=== PATIENT | male | born 1935 ===

== ENCOUNTER 2017-03-31 10:59 | Observation (INO) | payer OTHER ==
[2017-03-31 11:17] VITALS: BP 151/86; PULSE 76; RESP 20; TEMP 98; O2SAT 97
[2017-03-31] MEDS ORDERED: Sodium Chloride 0.9% 1,000 ML IV STA (11:43)
--- NOTE | 2017-03-31 11:55 | ED PDOC ---
HPI: Back Time Seen by Provider: 03/31/17 11:36 Chief Complaint (Nursing): Back Pain Chief Complaint (Provider): Back Pain History Per: Patient History/Exam Limitations: no limitations Onset/Duration Of Symptoms: Days (x 8) Current Symptoms Are (Timing): Still Present Additional Complaint(s): Arnold is an 81 y/o male who presents to the ED complaining of bilateral low back pain, ongoing for 8 days. Denies trauma and heavy lifting. Patient states he was diagnosed with 2 kidney stones two weeks ago while in the [facility] [place], one removed and one was to pass on its own. He is on Flomax. Also has mild dysuria. Denies any associated hematuria, abdominal pain, or fever. PMD: Unknown Past Medical History Reviewed: Historical Data, Nursing Documentation, Vital Signs Vital Signs: Last Vital Signs Temp 98.0 F 03/31/17 11:14 Pulse 76 03/31/17 11:14 Resp 20 03/31/17 11:14 BP 151/86 H 03/31/17 11:14 Pulse Ox 97 03/31/17 11:14 - Medical History PMH: Anemia, Kidney Stones (2 weeks ago), Chronic Kidney Disease - Surgical History Other surgeries: Kidney stone removal - Family History Family History: States: Unknown Family Hx - Social History Current smoker - smoking cessation education provided: No Alcohol: None Drugs: Denies - Home Medications Home Medications: Ambulatory Orders Medication Instructions Recorded Acetaminophen with Codeine 1 tab PO Q6H PRN #10 tab 03/31/17 [Tylenol with Codeine No. 3 300 mg-30 mg] Nitrofurantoin Macrocrystals 100 mg PO BID #14 cap 03/31/17 [Macrobid] Phenazopyridine [Pyridium] 200 mg PO TID #6 tab 03/31/17 - Allergies Allergies/Adverse Reactions: Allergies Allergy/AdvReac Type Severity Reaction Status Date / Time No Known Allergies Allergy Verified 03/31/17 11:13 Review of Systems ROS Statement: Except As Marked, All Systems Reviewed And Found Negative Constitutional: Negative for: Fever Gastrointestinal: Negative for: Abdominal Pain Genitourinary Male: Positive for: Dysuria (mild). Negative for: Hematuria Musculoskeletal: Positive for: Back Pain (bilateral low back pain) Physical Exam - Reviewed Nursing Documentation Reviewed: Yes Vital Signs Reviewed: Yes - Physical Exam Appears: Positive for: Non-toxic, No Acute Distress Head Exam: Positive for: ATRAUMATIC, NORMAL INSPECTION, NORMOCEPHALIC Skin: Positive for: Normal Color, Warm, Dry Eye Exam: Positive for: EOMI, Normal appearance, PERRL Neck: Positive for: Normal, Painless ROM, Supple Cardiovascular/Chest: Positive for: Regular Rate, Rhythm. Negative for: Murmur Respiratory: Positive for: Normal Breath Sounds. Negative for: Respiratory Distress Gastrointestinal/Abdominal: Positive for: Normal Exam, Soft. Negative for: Tenderness Back: Positive for: Other (bilateral low back tenderness) Extremity: Positive for: Normal ROM, Capillary Refill (< 2 sec). Negative for: Pedal Edema, Deformity Neurologic/Psych: Positive for: Alert, Oriented - Laboratory Results Result Diagrams: 03/31/17 12:00 03/31/17 12:00 - ECG O2 Sat by Pulse Oximetry: 97 (RA) Pulse Ox Interpretation: Normal Medical Decision Making Medical Decision Making: Time: 11:43 Initial Impression: Low back pain, kidney stones Initial Plan: --Labs --NS IV 1000 ml at 125 mls/hr --Morphine 2 mg IV --Pending CT Abdomen/Pelvis Time: 14:02 CT Abdomen/Pelvis: FINDINGS: LOWER THORAX: Mild bibasilar atelectasis or scarring. . Heart size is upper limits of normal/ borderline enlarged. No significant pericardial effusion. Cardiac chambers exhibit low attenuation suggesting mild underlying anemia. LIVER: Liver exhibits normal size measuring approximately 14.5 cm in CC dimension. No obvious hepatic mass collection or calcification. GALLBLADDER AND BILE DUCTS: Gallbladder is physiologically distended. No evidence of intraluminal gallbladder calculi. PANCREAS: Evaluation of the pancreas is limited due to the lack of circulating intravenous contrast as well as adjacent non-opacified bowel. Pancreatic duct is barely visible although does not appear significantly dilated. No obvious large pancreatic mass or collection. SPLEEN: The spleen exhibits normal size and attenuation pattern without mass collection or calcification. ADRENALS: No adrenal lesions. KIDNEYS AND URETERS: The urinary bladder is physiologically Kidneys demonstrate relatively symmetric size. Multiple tiny calculi seen scattered throughout both kidneys, the largest of which is located in the upper/midpole right kidney measuring 3.3 mm. No evidence of obstructive hydronephrosis. Probable parapelvic left renal cyst. BLADDER: Urinary bladder is incompletely distended which may in part account for thick- walled appearance. Muscular hypertrophy presumably contributes. Possibility of cystitis or other intrinsic/invasive wall lesion not excluded. REPRODUCTIVE: Prostate gland measures approximately 3.5 cm in transverse dimension. Prostatic calcifications are present. There is a moderate-sized scrotal hydrocele present. APPENDIX: The appendix is not seen with complete certainty however what appears to represent normal appendix is best visualized on axial image number 54. No periappendiceal inflammatory changes. BOWEL: Evaluation of the bowel is limited due to the lack of oral contrast material. This there is a tiny hiatal hernia. The stomach is incompletely distended with food debris liquid and air. Incomplete distension presumably accounts for thick -walled appearance. The possibility of gastritis not excluded. Multiple of fluid filled mildly distended loops of small bowel are present with a small right inguinal hernia that contains a knuckle of small bowel. Rule out early complete small-bowel obstruction versus partial/intermittent small bowel obstruction. Stool and air seen throughout the colon. There may also be a few scattered colonic diverticula along the sigmoid and distal descending colon. No obvious radiographic evidence of acute diverticulitis however evaluation for diverticulitis is somewhat limited due to the paucity of intraperitoneal and retroperitoneal fat. PERITONEUM: Unremarkable. No fluid collection. No free air. LYMPH NODES: Evaluation for adenopathy is limited due to the lack of oral and intravenous contrast material as well as paucity of intraperitoneal and retroperitoneal fat. VASCULATURE: Atherosclerotic plaque changes seen along abdominal aorta and iliac arteries. No evidence of abdominal aortic aneurysm. BONES: Multilevel degenerative spondylosis of the lumbar and to a lesser degree lower thoracic spine. OTHER FINDINGS: None. IMPRESSION: Limited study as described. There is a right inguinal hernia that contains a knuckle of distal small bowel. The on the proximal small bowel is mildly distended with fluid. Rule out early complete versus partial and or intermittent small bowel obstruction. Bilateral nonobstructing renal calculi. Probable parapelvic cyst left kidney. Wall thickening of the urinary bladder likely due to incomplete distention and muscular hypertrophy. Cystitis or other intrinsic/invasive wall lesion not excluded. . There is a moderate size scrotal hydrocele. Findings also consistent with anemia as detailed above See above discussion for additional details and findings. --Patient admitted to ED-OBS as of 14:00 Scribe Attestation: Documented by Lida Xiong, acting as a scribe for Tatiana Grey MD Provider Scribe Attestation: All medical record entries made by the Scribe were at my direction and personally dictated by me. I have reviewed the chart and agree that the record accurately reflects my personal performance of the history, physical exam, medical decision making, and the department course for this patient. I have also personally directed, reviewed, and agree with the discharge instructions and disposition. ED OBSERVATION Date of observation admission: 03/31/17 Time of observation admission: 14:00 - Observation admission statement Patient is being placed in observation because:: Back pain - Progress Note Progress Note: 03/31/17 Time: 14:00 --Patient is resting comfortably. Vital signs stable. Time: 14:04 --Patient given Rocephin, 1 gm in NS IV Time: 15:30 --Patient is resting comfortably. Vital signs stable. Time: 16:15 --Paged fixed income trading vice president for consult --Patient given Rocephin 1 gm IV Time: 17:00 --Patient is resting comfortably. Vital signs stable. Disposition - Clinical Impression Clinical Impression: UTI (urinary tract infection), Back pain, Inguinal hernia - Disposition Disposition: Routine/Home Disposition Time: 18:00 Condition: STABLE
[2017-03-31 12:11] LABS: BASO # 0.1 K/uL (0.0-0.2); BASO % 1.2 % (0.0-2.0); EOS % 0.5 % (0.0-4.0); HEMATOCRIT 26.7 % (35.0-51.0); LYMPH # 1.2 K/uL (1.0-4.3); LYMPH % 14.3 % (20.0-40.0); MEAN CELL VOLUME 110.7 fl (80.0-94.0); MEAN CORPUSCULAR HEMOGLOBIN 35.5 pg (27.0-31.0); MEAN CORPUSCULAR HGB CONC 32.1 g/dL (33.0-37.0); MEAN PLATELET VOLUME 6.8 fl (7.2-11.7); MONO # 0.8 K/uL (0.0-0.8); MONO % 9.7 % (0.0-10.0); NEUT # 6.5 K/uL (1.8-7.0); NEUT % 74.3 % (50.0-75.0); NRBC % 0.1 % (0.0-0.0); RED CELL DISTRIBUTION WIDTH 19.8 % (11.5-14.5); WHITE BLOOD COUNT 8.7 K/uL (4.8-10.8)
[2017-03-31 12:21] LABS: ALB/GLOB RATIO 0.7 (1.0-2.1); ALKALINE PHOSPHATASE 222 U/L (38-126); ALT/SGPT 42 U/L (21-72); AST/SGOT 33 U/L (17-59); BILIRUBIN,TOTAL 0.6 mg/dl (0.2-1.3); BLOOD UREA NITROGEN 20 mg/dl (9-20); CALCIUM 8.1 mg/dL (8.4-10.2); CARBON DIOXIDE 24 mmol/L (22-30); CHLORIDE 109 mmol/L (98-107); GFR AFRICAN-AMERICAN > 60; GLUCOSE,RANDOM 123 mg/dL (75-110); SODIUM 139 mmol/l (132-148); TOTAL PROTEIN 6.5 G/DL (6.3-8.2)
[2017-03-31 12:28] LABS: POTASSIUM 5.3 MMOL/L (3.6-5.0)
[2017-03-31 12:29] LABS: PARTIAL THROMBOPLASTIN TIME 32.8 Seconds (25.6-37.1)
[2017-03-31 12:58] LABS: RBC URINE 3 /hpf (0-3); URINE BACTERIA RARE (<OCC); URINE BILIRUBIN NEGATIVE (NEGATIVE); URINE BLOOD NEGATIVE (NEGATIVE); URINE COLOR YELLOW (YELLOW); URINE GLUCOSE (UA) NEG (Normal); URINE KETONE NEGATIVE (NEGATIVE); URINE LEUKOCYTE ESTERASE TRACE Leu/uL (Negative); URINE PROTEIN NEGATIVE (NEGATIVE); URINE UROBILINOGEN 0.2-1.0 mg/dL (0.2-1.0); WBC URINE 7 /hpf (0-5)
--- NOTE | 2017-03-31 14:04 | CT ---
PROCEDURE: CT abdomen pelvis dated 03/31/2017 HISTORY: Bilateral low back pain, h/o renal stones COMPARISON: None. TECHNIQUE: Contiguous axial images of the abdomen and pelvis performed without oral or intravenous. coronal and Sagittal reformats generated. Radiation dose: Total exam DLP = 333.98 mGy-cm. This CT exam was performed using one or more of the following dose reduction techniques: Automated exposure control, adjustment of the mA and/or kV according to patient size, and/or use of iterative reconstruction technique. FINDINGS: LOWER THORAX: Mild bibasilar atelectasis or scarring. . Heart size is upper limits of normal/borderline enlarged. No significant pericardial effusion. Cardiac chambers exhibit low attenuation suggesting mild underlying anemia. LIVER: Liver exhibits normal size measuring approximately 14.5 cm in CC dimension. No obvious hepatic mass collection or calcification. GALLBLADDER AND BILE DUCTS: Gallbladder is physiologically distended. No evidence of intraluminal gallbladder calculi. PANCREAS: Evaluation of the pancreas is limited due to the lack of circulating intravenous contrast as well as adjacent non-opacified bowel. Pancreatic duct is barely visible although does not appear significantly dilated. No obvious large pancreatic mass or collection. SPLEEN: The spleen exhibits normal size and attenuation pattern without mass collection or calcification. ADRENALS: No adrenal lesions. KIDNEYS AND URETERS: The urinary bladder is physiologically Kidneys demonstrate relatively symmetric size. Multiple tiny calculi seen scattered throughout both kidneys, the largest of which is located in the upper/midpole right kidney measuring 3.3 mm. No evidence of obstructive hydronephrosis. Probable parapelvic left renal cyst. BLADDER: Urinary bladder is incompletely distended which may in part account for thick-walled appearance. Muscular hypertrophy presumably contributes. Possibility of cystitis or other intrinsic/invasive wall lesion not excluded. REPRODUCTIVE: Prostate gland measures approximately 3.5 cm in transverse dimension. Prostatic calcifications are present. There is a moderate-sized scrotal hydrocele present. APPENDIX: The appendix is not seen with complete certainty however what appears to represent normal appendix is best visualized on axial image number 54. No periappendiceal inflammatory changes. BOWEL: Evaluation of the bowel is limited due to the lack of oral contrast material. This there is a tiny hiatal hernia. The stomach is incompletely distended with food debris liquid and air. Incomplete distension presumably accounts for thick-walled appearance. The possibility of gastritis not excluded. Multiple of fluid filled mildly distended loops of small bowel are present with a small right inguinal hernia that contains a knuckle of small bowel. Rule out early complete small-bowel obstruction versus partial/intermittent small bowel obstruction. Stool and air seen throughout the colon. There may also be a few scattered colonic diverticula along the sigmoid and distal descending colon. No obvious radiographic evidence of acute diverticulitis however evaluation for diverticulitis is somewhat limited due to the paucity of intraperitoneal and retroperitoneal fat. PERITONEUM: Unremarkable. No fluid collection. No free air. LYMPH NODES: Evaluation for adenopathy is limited due to the lack of oral and intravenous contrast material as well as paucity of intraperitoneal and retroperitoneal fat. VASCULATURE: Atherosclerotic plaque changes seen along abdominal aorta and iliac arteries. No evidence of abdominal aortic aneurysm. BONES: Multilevel degenerative spondylosis of the lumbar and to a lesser degree lower thoracic spine. OTHER FINDINGS: None. IMPRESSION: Limited study as described. There is a right inguinal hernia that contains a knuckle of distal small bowel. The on the proximal small bowel is mildly distended with fluid. Rule out early complete versus partial and or intermittent small bowel obstruction. Bilateral nonobstructing renal calculi. Probable parapelvic cyst left kidney. Wall thickening of the urinary bladder likely due to incomplete distention and muscular hypertrophy. Cystitis or other intrinsic/invasive wall lesion not excluded. . There is a moderate size scrotal hydrocele. Findings also consistent with anemia as detailed above See above discussion for additional details and findings.
[2017-03-31] MEDS ORDERED: cefTRIAXone (Rocephin) 1 gm Inj ONE (14:11)
== END 2017-03-31 18:02 | disposition home or self-care (01) ==
LOC: H.ER 10:59 → H.EROBSV 17:06
PROVIDERS: ADMIT Emergency Medicine; ATTEND Emergency Medicine
DX: N39.0 Urinary tract infection, site not specified (principal); M54.5 Low back pain; K40.90 Unilateral inguinal hernia, without obstruction or gangrene, not specified as recurrent; N18.9 Chronic kidney disease, unspecified; Z87.442 Personal history of urinary calculi; D64.9 Anemia, unspecified
CPT/HCPCS: 74176; 80053; 81003; 85025; 85610; 85730; 96372; 99282; G0378; J0696; J1885; J2270; J7040

== ENCOUNTER 2017-04-03 18:25 | Observation (INO) | payer SELFPAY ==
[2017-04-03] MEDS ORDERED: Iohexol 240 (50 ml) PO ONE (19:02)
[2017-04-03 19:20] LABS: BASO # 0.1 K/uL (0.0-0.2); EOS # 0.1 K/uL (0.0-0.7); EOS % 0.8 % (0.0-4.0); HEMATOCRIT 26.5 % (35.0-51.0); LYMPH # 1.3 K/uL (1.0-4.3); LYMPH % 14.1 % (20.0-40.0); MEAN CELL VOLUME 105.9 fl (80.0-94.0); MEAN CORPUSCULAR HEMOGLOBIN 33.9 pg (27.0-31.0); MEAN PLATELET VOLUME 6.4 fl (7.2-11.7); MONO % 10.7 % (0.0-10.0); NEUT # 6.5 K/uL (1.8-7.0); NEUT % 73.4 % (50.0-75.0); NRBC % 0.1 % (0.0-0.0); RED CELL DISTRIBUTION WIDTH 22.1 % (11.5-14.5); WHITE BLOOD COUNT 8.9 K/uL (4.8-10.8)
[2017-04-03] MEDS ORDERED: Iohexol 240 (50 ml) ONE (19:20)
[2017-04-03 19:27] LABS: RBC URINE 3 /hpf (0-3); URINE BACTERIA RARE (<OCC); URINE BILIRUBIN NEGATIVE (NEGATIVE); URINE BLOOD NEGATIVE (NEGATIVE); URINE COLOR AMBER (YELLOW); URINE GLUCOSE (UA) NEG (Normal); URINE KETONE NEGATIVE (NEGATIVE); URINE LEUKOCYTE ESTERASE NEG Leu/uL (Negative); URINE PROTEIN NEGATIVE (NEGATIVE); WBC URINE 10 /hpf (0-5)
[2017-04-03 19:32] LABS: ALB/GLOB RATIO 0.7 (1.0-2.1); ALKALINE PHOSPHATASE 206 U/L (38-126); ALT/SGPT 40 U/L (21-72); AST/SGOT 22 U/L (17-59); BILIRUBIN,TOTAL 0.4 mg/dl (0.2-1.3); BLOOD UREA NITROGEN 14 mg/dl (9-20); CALCIUM 8.5 mg/dL (8.4-10.2); CARBON DIOXIDE 25 mmol/L (22-30); CHLORIDE 103 mmol/L (98-107); GFR AFRICAN-AMERICAN > 60; GLUCOSE,RANDOM 118 mg/dL (75-110); LIPASE 49 U/L (23-300); MAGNESIUM 1.9 MG/DL (1.6-2.3); PHOSPHOROUS 3.7 mg/dl (2.5-4.5); POTASSIUM 4.2 MMOL/L (3.6-5.0); SODIUM 134 mmol/l (132-148); TOTAL PROTEIN 6.5 G/DL (6.3-8.2)
[2017-04-03] MEDS ORDERED: cefTRIAXone (Rocephin) 1 gm Inj ONE (19:39)
--- NOTE | 2017-04-03 19:46 | ED PDOC ---
HPI: Back Time Seen by Provider: 04/03/17 18:39 Chief Complaint (Nursing): Male Genitourinary Chief Complaint (Provider): Flank pain History Per: Patient History/Exam Limitations: no limitations Onset/Duration Of Symptoms: Days (x 2 weeks) Current Symptoms Are (Timing): Still Present Additional History Per: Prior Records Additional Complaint(s): Arnold is an 81 y/o male with a past medical history of kidney stones and anemia, who presents to ED complaining of flank pain for the past 2 weeks, worsening since onset. He recently had renal calculi and underwent a procedure to remove them in the [place]. Seen here on 03/31/17, and had CT which showed a right inguinal hernia. Patient was diagnosed with urine infection , prescribed pain meds and antibiotics. Now returns complaining of persistent pain, subjective chills and fever, decreased appetite, lower abdominal pain, and dysuria. Denies urinary frequency and vomiting. PMD: Unknown Past Medical History Reviewed: Historical Data, Nursing Documentation, Vital Signs Vital Signs: Last Vital Signs Temp 99.0 F 04/03/17 18:35 Pulse 74 04/03/17 18:35 Resp 20 04/03/17 18:35 BP 143/71 04/03/17 18:35 Pulse Ox 99 04/03/17 18:35 - Medical History PMH: Anemia, Kidney Stones (2 weeks ago), Chronic Kidney Disease - Surgical History Surgical History: No Surg Hx - Family History Family History: States: Unknown Family Hx - Social History Current smoker - smoking cessation education provided: No Alcohol: None Drugs: Denies - Home Medications Home Medications: Ambulatory Orders Medication Instructions Recorded Acetaminophen with Codeine 1 tab PO Q6H PRN #10 tab 03/31/17 [Tylenol with Codeine No. 3 300 mg-30 mg] Nitrofurantoin Macrocrystals 100 mg PO BID #14 cap 03/31/17 [Macrobid] Phenazopyridine [Pyridium] 200 mg PO TID #6 tab 03/31/17 - Allergies Allergies/Adverse Reactions: Allergies Allergy/AdvReac Type Severity Reaction Status Date / Time No Known Allergies Allergy Verified 03/31/17 11:13 Review of Systems ROS Statement: Except As Marked, All Systems Reviewed And Found Negative (as per HPI) Constitutional: Positive for: Fever, Chills Gastrointestinal: Positive for: Abdominal Pain (Lower), Other (Decreased appetite). Negative for: Vomiting Genitourinary Male: Positive for: Dysuria. Negative for: Frequency Musculoskeletal: Positive for: Back Pain (Flank pain), Leg Pain (right leg swelling) Physical Exam - Reviewed Nursing Documentation Reviewed: Yes Vital Signs Reviewed: Yes - Physical Exam Appears: Positive for: Non-toxic, In Acute Distress (painful distress, cachectic appearing) Head Exam: Positive for: ATRAUMATIC, NORMOCEPHALIC Skin: Positive for: Warm, Dry Eye Exam: Positive for: EOMI, PERRL ENT: Positive for: Other (tacky mucus membranes) Neck: Positive for: Painless ROM, Supple Cardiovascular/Chest: Positive for: Regular Rate, Rhythm, Chest Non Tender. Negative for: Murmur Respiratory: Positive for: Normal Breath Sounds. Negative for: Wheezing, Respiratory Distress Gastrointestinal/Abdominal: Positive for: Soft, Tenderness (lower abdominal ttp , paul R inguinal area with palpable reducible hernia) Back: Positive for: L CVA Tenderness, R CVA Tenderness. Negative for: Vertebral Tenderness Extremity: Positive for: Normal ROM, Pedal Edema (RIGHT lower foot and ankle). Negative for: Calf Tenderness Lymphatic: Positive for: Adenopathy Neurologic/Psych: Positive for: Alert. Negative for: Motor/Sensory Deficits - Laboratory Results Result Diagrams: 04/04/17 06:25 04/03/17 19:15 - ECG O2 Sat by Pulse Oximetry: 99 (RA) Pulse Ox Interpretation: Normal Medical Decision Making Medical Decision Making: Initial Impression: Flank pain, Abdominal pain Differential includes renal calculus, pyelonephritis, small bowel obstruction, dehydration, UTI Time: 19:02 Initial Plan: --Labs --Iohexol 50 ml PO --Morphine 2 mg IV --Toradol 15 mg IV --Rocephin 1 gm IV --CT Abdomen/Pelvis PO IV contrast --US Duplex Right lower extremity EXAM: CT Abdomen and Pelvis With Intravenous Contrast CLINICAL HISTORY: 81 years old, male; Pain; Other: Back; Additional info: Back and abdominal pain possible sbo TECHNIQUE: Axial computed tomography images of the abdomen and pelvis with intravenous contrast. All CT scans at this facility use one or more dose reduction techniques, viz.: automated exposure control; ma/kV adjustment per patient size (including targeted exams where dose is matched to indication; i.e. head); or iterative reconstruction technique. Coronal and sagittal reformatted images were created and reviewed. CONTRAST: 95 mL of omnipaque administered intravenously. COMPARISON: No relevant prior studies available. examination is limited by the lack of intraperitoneal and retroperitoneal fat. FINDINGS: Lower thorax: Bibasilar atelectasis. Subpleural cyst formation. The heart is enlarged. A small hiatal hernia is present. ABDOMEN: Liver: The liver is enlarged, but otherwise unremarkable. Gallbladder and bile ducts: The gallbladder is significantly distended, without calcified stones. The gallbladder is filled with low density contents, without wall thickening, pericholecystic fluid or adjacent fat stranding, suggesting gallbladder hydrops. No significant intra- or extrahepatic biliary ductal dilation. Pancreas: Enhances homogeneously. No ductal dilation. No discrete mass. Spleen: No acute findings. Adrenals: No acute findings. Kidneys and ureters: No acute findings. No hydronephrosis or renal calculi. No discrete solid mass. Multiple rounded areas of decreased attenuation, statistically representing cysts. PELVIS: Bladder: The bladder is moderately distended. Reproductive: No acute findings. Appendix: The appendix is not visualized. ABDOMEN and PELVIS: Stomach and bowel: Oral contrast extends to the mid to distal small bowel, without obstruction. Mural thickening is identified within multiple loops of distal small bowel, without surrounding inflammation or fluid to confirm an acute enteritis. A single loop of air-filled small bowel is detected within a right inguinal hernia, without distal decompression. Peritoneum: As above. Lymph nodes: Limited visualization secondary to the lack of intra-abdominal fat. Vasculature: Calcified atherosclerotic disease. Bones: Diffuse bony demineralization with significant degenerative disease, without acute fracture. IMPRESSION: Findings consistent with gallbladder hydrops, as detailed above. Mural thickening within multiple loops of distal small bowel, without surrounding inflammation or fluid to confirm an acute enteritis. Nonobstructing right inguinal hernia. Thank you for allowing us to participate in the care of your patient. Dictated and Authenticated by: Sara Ingram MD 04/03/2017 11:21 PM Eastern Time ([place] & [place]) Persistent back pain and UTI, concern for persistent pyelonephritis post renal calculus. Scribe Attestation: Documented by Lida Xiong, acting as a scribe for Cathi Kimball MD Provider Scribe Attestation: All medical record entries made by the Scribe were at my direction and personally dictated by me. I have reviewed the chart and agree that the record accurately reflects my personal performance of the history, physical exam, medical decision making, and the department course for this patient. I have also personally directed, reviewed, and agree with the discharge instructions and disposition. Disposition - Clinical Impression Clinical Impression: Urinary tract infection, Back pain, Inguinal hernia Counseled Patient/Family Regarding: Studies Performed, Diagnosis - Disposition Disposition Time: 23:00 Condition: FAIR - Pt Status Changed To: Hospital Disposition Of: Observation - POA Present On Arrival: None
[2017-04-03] MEDS ORDERED: Iohexol 300 100 ML IJ ONE (22:01)
[2017-04-03] MEDS ORDERED: Sodium Chloride 0.9% 50 ML IV ONE (22:01)
--- NOTE | 2017-04-03 23:06 | US ---
EXAM: US Duplex Right Lower Extremity Veins CLINICAL HISTORY: 81 years old, male; Pain; Leg, lower; Right; Additional info: Right leg swelling TECHNIQUE: Real-time ultrasound scan of the veins of the right lower extremity with color Doppler flow, spectral waveform analysis and compression. COMPARISON: No relevant prior studies available. FINDINGS: Deep veins: Unremarkable. No DVT in the visualized common femoral, femoral, proximal deep femoral or popliteal veins. The veins demonstrate normal color flow, are normally compressible, with normal phasic flow and/or augmentation response. Superficial veins: Unremarkable. Soft tissues: No acute findings. No popliteal cyst. IMPRESSION: Normal right lower extremity duplex venous ultrasound.
--- NOTE | 2017-04-03 23:22 | CT ---
EXAM: CT Abdomen and Pelvis With Intravenous Contrast CLINICAL HISTORY: 81 years old, male; Pain; Other: Back; Additional info: Back and abdominal pain possible sbo TECHNIQUE: Axial computed tomography images of the abdomen and pelvis with intravenous contrast. All CT scans at this facility use one or more dose reduction techniques, viz.: automated exposure control; ma/kV adjustment per patient size (including targeted exams where dose is matched to indication; i.e. head); or iterative reconstruction technique. Coronal and sagittal reformatted images were created and reviewed. CONTRAST: 95 mL of omnipaque administered intravenously. COMPARISON: No relevant prior studies available. examination is limited by the lack of intraperitoneal and retroperitoneal fat. FINDINGS: Lower thorax: Bibasilar atelectasis. Subpleural cyst formation. The heart is enlarged. A small hiatal hernia is present. ABDOMEN: Liver: The liver is enlarged, but otherwise unremarkable. Gallbladder and bile ducts: The gallbladder is significantly distended, without calcified stones. The gallbladder is filled with low density contents, without wall thickening, pericholecystic fluid or adjacent fat stranding, suggesting gallbladder hydrops. No significant intra- or extrahepatic biliary ductal dilation. Pancreas: Enhances homogeneously. No ductal dilation. No discrete mass. Spleen: No acute findings. Adrenals: No acute findings. Kidneys and ureters: No acute findings. No hydronephrosis or renal calculi. No discrete solid mass. Multiple rounded areas of decreased attenuation, statistically representing cysts. PELVIS: Bladder: The bladder is moderately distended. Reproductive: No acute findings. Appendix: The appendix is not visualized. ABDOMEN and PELVIS: Stomach and bowel: Oral contrast extends to the mid to distal small bowel, without obstruction. Mural thickening is identified within multiple loops of distal small bowel, without surrounding inflammation or fluid to confirm an acute enteritis. A single loop of air-filled small bowel is detected within a right inguinal hernia, without distal decompression. Peritoneum: As above. Lymph nodes: Limited visualization secondary to the lack of intra-abdominal fat. Vasculature: Calcified atherosclerotic disease. Bones: Diffuse bony demineralization with significant degenerative disease, without acute fracture. IMPRESSION: Findings consistent with gallbladder hydrops, as detailed above. Mural thickening within multiple loops of distal small bowel, without surrounding inflammation or fluid to confirm an acute enteritis. Nonobstructing right inguinal hernia.
--- NOTE | 2017-04-04 00:01 | CP.PCM.HP ---
History of Present Illness - History of Present Illness History of Present Illness: PCP: None Chief Complaint: Lower back and leg pain Patient seen and examined in ED HPI: The hx is obtained from the patient, his daughter and after review of the medical records. He is an 81 years old male with hx of anemia, bilateral lower extremity pains and nephrolithiasis. his last admission for renal colic was in [place] early March 2017. he passed the stone on . He was brought to the ED on 03/31/17 for back pain and was dx with UTI and discharged of Macrobid. He now returns to the ED with worsening pain across the lower back, continuous, increases with turning in bed, sitting up, standing up or walking. The pain radiates posteriorly and laterally down the Thighs, on the right to the ankle and to the left tot the knee. He does refer dysuria, urinary frequency, anorexia and diarrhea, but no fever, vomits. PMH: Anemia; Nephrolithiasis; Bilateral leg pain; Lower back pain; Right inguinal hernia; Glaucoma PSH; Denies SH: No Smoking of Cigarettes; no illegal drug use; Occasional Alcohol; Live with family FH: Unknown family Hx Allergies: NKDA Medication: Pyridium; Macrobid; Tylenol#3 Present on Admission - Present on Admission Any Indicators Present on Admission: No History of DVT/PE: No History of Uncontrolled Diabetes: No Urinary Catheter: No Decubitus Ulcer Present: No Review of Systems - Constitutional Constitutional: Anorexia. absent: Fever, Headache - EENT Eyes: Requires Corrective Lenses. absent: Diplopia, Photophobia Ears: absent: Decreased Hearing, Ear Discharge, Tinnitus Nose/Mouth/Throat: absent: Epistaxis, Nasal Congestion - Cardiovascular Cardiovascular: absent: Chest Pain, Claudication, Dyspnea, Edema - Respiratory Respiratory: absent: Cough, Dyspnea, Chest Congestion - Gastrointestinal Gastrointestinal: Diarrhea. absent: Abdominal Pain, Constipation, Nausea, Vomiting - Genitourinary Genitourinary: Dysuria, Flank Pain, Urinary Frequency. absent: Hematuria - Musculoskeletal Musculoskeletal: Back Pain Additional comments: Pain to both lower extremities - Integumentary Integumentary: absent: Pruritus, Rash, Skin Ulcer, Sores - Neurological Neurological: Headaches, Weakness. absent: Confusion, Focal Weakness - Psychiatric Psychiatric: absent: Anxiety, Depression, Panic Attacks - Endocrine Endocrine: Polydipsia, Polyuria. absent: Palpitations, Polyphagia Past Patient History - Past Medical History & Family History Past Medical History?: Yes - Past Social History Smoking Status: Never Smoked Chewing Tobacco Use: Yes Cigar Use: Yes Alcohol: None Drugs: Denies Home Situation {Lives}: With Family - CARDIAC Hx Cardiac Disorders: No - PULMONARY Hx Respiratory Disorders: No - NEUROLOGICAL Hx Neurological Disorder: No - HEENT Hx HEENT Problems: No - RENAL Hx Chronic Kidney Disease: Yes Hx Kidney Stones: Yes (2 weeks ago) - ENDOCRINE/METABOLIC Hx Endocrine Disorders: No - HEMATOLOGICAL/ONCOLOGICAL Hx Anemia: Yes - MUSCULOSKELETAL/RHEUMATOLOGICAL Hx Musculoskeletal Disorders: Yes Hx Back Pain: Yes - GENITOURINARY/GYNECOLOGICAL Hx Genitourinary Disorders: No - PSYCHIATRIC Hx Psychophysiologic Disorder: No Hx Substance Use: No - SURGICAL HISTORY Hx Surgeries: Yes Other/Comment: 1 kidney stone removed - ANESTHESIA Hx Anesthesia: Yes Hx Anesthesia Reactions: No Meds Allergies/Adverse Reactions: Allergies Allergy/AdvReac Type Severity Reaction Status Date / Time No Known Allergies Allergy Verified 03/31/17 11:13 Physical Exam - Constitutional Appears: No Acute Distress, Cachectic - Head Exam Head Exam: ATRAUMATIC, NORMAL INSPECTION, NORMOCEPHALIC - Eye Exam Eye Exam: EOMI, Normal appearance Pupil Exam: NORMAL ACCOMODATION, PERRL - ENT Exam ENT Exam: Mucous Membranes Moist, Normal Exam, Normal External Ear Exam, Normal Oropharynx Additional comments: Upper and lower Prosthesis. - Neck Exam Neck exam: Positive for: Full Rom, Normal Inspection. Negative for: Lymphadenopathy, Tenderness - Respiratory Exam Respiratory Exam: Clear to Auscultation Bilateral. absent: Rales, Rhonchi, Wheezes - Cardiovascular Exam Cardiovascular Exam: REGULAR RHYTHM, RRR, +S1, +S2. absent: Gallop, JVD - GI/Abdominal Exam GI & Abdominal Exam: Normal Bowel Sounds, Soft. absent: Mass, Organomegaly, Tenderness - Rectal Exam Rectal Exam: Deferred - Extremities Exam Extremities exam: Negative for: joint swelling Additional comments: Pain on palpation to the right leg and thigh at the anterior aspect. Trace edema to the right lower extremity. - Back Exam Back exam: CVA tenderness (L), CVA tenderness (R), NORMAL INSPECTION - Neurological Exam Neurological exam: Alert, CN II-XII Intact, Oriented x3, Reflexes Normal - Psychiatric Exam Psychiatric exam: Normal Affect, Normal Mood - Skin Skin Exam: Dry, Intact, Normal Color, Warm Results - Vital Signs Recent Vital Signs: Last Vital Signs Temp 99.2 F 04/03/17 19:54 Pulse 74 04/03/17 18:35 Resp 20 04/03/17 18:35 BP 143/71 04/03/17 18:35 Pulse Ox 99 04/03/17 23:38 - Labs Result Diagrams: 04/03/17 19:15 04/03/17 19:15 Labs: Laboratory Results - last 24 hr 04/03/17 04/03/17 04/03/17 19:15 19:15 19:15 WBC 8.9 RBC 2.51 L Hgb 8.5 L Hct 26.5 L MCV 105.9 H D MCH 33.9 H MCHC 32.0 L RDW 22.1 H Plt Count 679 H D MPV 6.4 L Neut % (Auto) 73.4 Lymph % (Auto) 14.1 L Tate % (Auto) 10.7 H Eos % (Auto) 0.8 Baso % (Auto) 1.0 Neut # 6.5 Lymph # 1.3 Tate # 1.0 H Eos # 0.1 Baso # 0.1 D-Dimer, Quantitative 665 H Sodium 134 Potassium 4.2 Chloride 103 Carbon Dioxide 25 Anion Gap 11 BUN 14 Creatinine 1.3 Est GFR ( Amer) > 60 Est GFR (Non-Af Amer) 53 Random Glucose 118 H Lactic Acid Calcium 8.5 Phosphorus 3.7 Magnesium 1.9 Total Bilirubin 0.4 AST 22 ALT 40 Alkaline Phosphatase 206 H Total Protein 6.5 Albumin 2.7 L Globulin 3.8 Albumin/Globulin Ratio 0.7 L Lipase 49 Urine Color Urine Clarity Urine pH Ur Specific [place] Urine Protein Urine Glucose (UA) Urine Ketones Urine Blood Urine Nitrate Urine Bilirubin Urine Urobilinogen Ur Leukocyte Esterase Urine RBC (Auto) Urine Microscopic WBC Ur Squamous Epith Cells Urine Bacteria Hyaline Casts 04/03/17 04/03/17 19:15 19:20 WBC RBC Hgb Hct MCV MCH MCHC RDW Plt Count MPV Neut % (Auto) Lymph % (Auto) Tate % (Auto) Eos % (Auto) Baso % (Auto) Neut # Lymph # Tate # Eos # Baso # D-Dimer, Quantitative Sodium Potassium Chloride Carbon Dioxide Anion Gap BUN Creatinine Est GFR ( Amer) Est GFR (Non-Af Amer) Random Glucose Lactic Acid 1.0 Calcium Phosphorus Magnesium Total Bilirubin AST ALT Alkaline Phosphatase Total Protein Albumin Globulin Albumin/Globulin Ratio Lipase Urine Color Donya Urine Clarity Clear Urine pH 5.0 Ur Specific [place] 1.012 Urine Protein Negative Urine Glucose (UA) Neg Urine Ketones Negative Urine Blood Negative Urine Nitrate Positive H Urine Bilirubin Negative Urine Urobilinogen 4.0 Ur Leukocyte Esterase Neg Urine RBC (Auto) 3 Urine Microscopic WBC 10 H Ur Squamous Epith Cells 1 Urine Bacteria Rare Hyaline Casts 0-2 Assessment & Plan - Assessment and Plan (Free Text) Assessment: #. Back Pain r/o Sciatica #. UTI #. macrocytic Anemia #. Elevated D Dimer #. Diarrhea #. Thrombocytosis Plan: 81 years old male with hx of anemia, bilateral lower extremity pains and nephrolithiasis. His last admission for renal colic was in [place] early March 2017. He passed the stone on 03/19/17. He was brought to the ED on for back pain and was dx with UTI and discharged of Macrobid. He now returns to the ED with worsening pain across the lower back, radiating posteriorly and laterally down the Thighs, on the right to the ankle and to the left to the knee. #. Back Pain r/o Sciatica - MRI of lumbar spine - ESR - Consult Neuro Surgeon Dr Bruce - Pain management with Morphine until after seen by neurosurgeon or after surgery - OT/PT #. UTI - IV Fluids NS at 75mls/Hr - Rocephin #. Macrocytic Anemia - Follow Folate/ B12 and Hb #. Elevated D Dimer - Duplex of the right LE was -ve for DVT No evidence for Pulmonary embolism #. Diarrhea - Follow C Diff and stool culture #. Thrombocytosis - follow Platelets #. Moderate malnutrition - consult Dietition #. DVT Prophylaxis with SCD - Date & Time Date: 04/04/17 Time: 00:00
[2017-04-04] MEDS: Sodium Chloride 0.9% 1,000 ML IV SCH ×2 (01:13→16:43)
[2017-04-04 08:16] LABS: BASO # 0.1 K/uL (0.0-0.2); BASO % 0.7 % (0.0-2.0); EOS # 0.1 K/uL (0.0-0.7); EOS % 1.4 % (0.0-4.0); HEMATOCRIT 26.3 % (35.0-51.0); LYMPH # 1.4 K/uL (1.0-4.3); LYMPH % 16.5 % (20.0-40.0); MEAN CELL VOLUME 104.9 fl (80.0-94.0); MEAN CORPUSCULAR HEMOGLOBIN 34.6 pg (27.0-31.0); MEAN PLATELET VOLUME 6.8 fl (7.2-11.7); MONO # 0.7 K/uL (0.0-0.8); MONO % 9.1 % (0.0-10.0); NEUT # 5.9 K/uL (1.8-7.0); NEUT % 72.3 % (50.0-75.0); NRBC % 0.1 % (0.0-0.0); RED CELL DISTRIBUTION WIDTH 22.3 % (11.5-14.5); WHITE BLOOD COUNT 8.2 K/uL (4.8-10.8)
[2017-04-04] MEDS ORDERED: Enoxaparin 40 mg Syringe SC SCH (09:00)
[2017-04-04] MEDS ORDERED: Gadodiamide 287 MG/ML VIAL (15ML) IV ONE (09:33)
--- NOTE | 2017-04-04 14:01 | MRI ---
PROCEDURE: MRI of the lumbar spine dated 04/04/2017 HISTORY: Low back pain lower back radiating down both thighs COMPARISON: Comparison made with CT scan abdomen and pelvis dated 04/03/2017 TECHNIQUE: Multiecho multiplanar sequences were performed through the lumbar spine with and without the use of intravenous contrast. . FINDINGS: The current study reveals what is felt to represent enhancing epidural abscess which extends from approximately the L1-L2 through the mid L5 levels. The presumed abscess circumferentially surrounds the anterior, left lateral and posterior margin of the thecal sac at the L1-L2 level and completely surrounds the anterior and posterior margins of the thecal sac from the L2-L3 through mid-lower L3 level . Epidural abscess stent continues anteriorly within the spinal canal from the mid -lower L3 through the L4-L5 levels. There is significant compression of the thecal sac over these levels though maximally at the L4 level. . There are also an enhancing bilateral paraspinal component which extends from approximately the L2-L3 through the upper L5 level. The changes appear to involve the psoas musculature as well. Note these findings were discussed with Dr. Veronica at approximately 1:35 p.m. with written down and read back verification. . Prolonged T2 signal changes are seen within the L3 and L4 segments. Questionable minor enhancement along the posterior disc margin L3-L4 level. . There are some minor localized enhancing changes seen within L1-L2 disc space felt to represent a enhancing Schmorl's node. Questionable minimal localized enhancement within the mid L3-L4 disc space level is well. . Multilevel degenerative spondylosis. Changes include varying degrees of disc desiccation and disc space narrowing with cortical endplate irregularity/ scattered Schmorl's nodes and posterior osteophytic ridge disc bulge complexes. Facet joints also hypertrophic the L5-S1 through the L1-L2 levels in somewhat decreasing order of severity. Conus terminates at approximately the mid L1 level. Left parapelvic cyst. Impression: Apparent epidural abscess which extends from the L1-L2 through the upper L5 level with significant compressive effects on the thecal sac maximally at the L4 level where the thecal sac exhibits crescentic/ ribbonlike configuration. . In addition, there also appears to be paraspinal of phlegmonous/inflammatory component on as detailed above. Note that findings discussed with Dr. Veronica at approximately 1:35 p.m. with written down and read back verification
[2017-04-04 16:32] VITALS: O2SAT 98
--- NOTE | 2017-04-04 17:58 | CP.PCM.DIS ---
Provider - Provider Date of Admission: 04/03/17 23:38 Attending physician: Jalil Ocampo Primary care physician: None Consults: Neurosurgery ID consult Time Spent in preparation of Discharge (in minutes): 30 Diagnosis - Discharge Diagnosis (1) Spinal epidural abscess Status: Acute Hospital Course - Lab Results Lab Results: Most Recent Lab Values WBC 8.2 K/uL (4.8-10.8) 04/04/17 06:25 RBC 2.51 Mil/uL (4.40-5.90) L 04/04/17 06:25 Hgb 8.7 g/dL (12.0-18.0) L 04/04/17 06:25 Hct 26.3 % (35.0-51.0) L 04/04/17 06:25 MCV 104.9 fl (80.0-94.0) H 04/04/17 06:25 MCH 34.6 pg (27.0-31.0) H 04/04/17 06:25 MCHC 33.0 g/dL (33.0-37.0) 04/04/17 06:25 RDW 22.3 % (11.5-14.5) H 04/04/17 06:25 Plt Count 660 K/uL (130-400) H 04/04/17 06:25 MPV 6.8 fl (7.2-11.7) L 04/04/17 06:25 Neut % (Auto) 72.3 % (50.0-75.0) 04/04/17 06:25 Lymph % (Auto) 16.5 % (20.0-40.0) L 04/04/17 06:25 [place] % (Auto) 9.1 % (0.0-10.0) 04/04/17 06:25 Eos % (Auto) 1.4 % (0.0-4.0) 04/04/17 06:25 Baso % (Auto) 0.7 % (0.0-2.0) 04/04/17 06:25 Neut # 5.9 K/uL (1.8-7.0) 04/04/17 06:25 Lymph # 1.4 K/uL (1.0-4.3) 04/04/17 06:25 [place] # 0.7 K/uL (0.0-0.8) 04/04/17 06:25 Eos # 0.1 K/uL (0.0-0.7) 04/04/17 06:25 Baso # 0.1 K/uL (0.0-0.2) 04/04/17 06:25 ESR 95 mm/hr (0-20) H 04/04/17 06:25 D-Dimer, Quantitative 665 ng/mlDDU (0-230) H 04/03/17 19:15 Sodium 134 mmol/l (132-148) 04/03/17 19:15 Potassium 4.2 MMOL/L (3.6-5.0) 04/03/17 19:15 Chloride 103 mmol/L (98-107) 04/03/17 19:15 Carbon Dioxide 25 mmol/L (22-30) 04/03/17 19:15 Anion Gap 11 (10-20) 04/03/17 19:15 BUN 14 mg/dl (9-20) 04/03/17 19:15 Creatinine 1.3 mg/dL (0.8-1.5) 04/03/17 19:15 Est GFR ( Amer) > 60 04/03/17 19:15 Est GFR (Non-Af Amer) 53 04/03/17 19:15 Random Glucose 118 mg/dL (75-110) H 04/03/17 19:15 Lactic Acid 1.0 MMOL/L (0.7-2.1) 04/03/17 19:15 Calcium 8.5 mg/dL (8.4-10.2) 04/03/17 19:15 Phosphorus 3.7 mg/dl (2.5-4.5) 04/03/17 19:15 Magnesium 1.9 MG/DL (1.6-2.3) 04/03/17 19:15 Total Bilirubin 0.4 mg/dl (0.2-1.3) 04/03/17 19:15 AST 22 U/L (17-59) 04/03/17 19:15 ALT 40 U/L (21-72) 04/03/17 19:15 Alkaline Phosphatase 206 U/L (38-126) H 04/03/17 19:15 Total Protein 6.5 G/DL (6.3-8.2) 04/03/17 19:15 Albumin 2.7 g/dL (3.5-5.0) L 04/03/17 19:15 Globulin 3.8 gm/dL (2.2-3.9) 04/03/17 19:15 Albumin/Globulin Ratio 0.7 (1.0-2.1) L 04/03/17 19:15 Lipase 49 U/L (23-300) 04/03/17 19:15 Prostate Specific Ag 0.973 ng/ML (0.00-4.0) 04/04/17 06:25 Vitamin B12 454 pg/mL (239-931) 04/04/17 06:25 Urine Color Donya (YELLOW) 04/03/17 19:20 Urine Clarity Clear (Clear) 04/03/17 19:20 Urine pH 5.0 (5.0-8.0) 04/03/17 19:20 Ur Specific [place] 1.012 (1.003-1.030) 04/03/17 19:20 Urine Protein Negative mg/dL (NEGATIVE) 04/03/17 19:20 Urine Glucose (UA) Neg mg/dL (Normal) 04/03/17 19:20 Urine Ketones Negative mg/dL (NEGATIVE) 04/03/17 19:20 Urine Blood Negative (NEGATIVE) 04/03/17 19:20 Urine Nitrate Positive (NEGATIVE) H 04/03/17 19:20 Urine Bilirubin Negative (NEGATIVE) 04/03/17 19:20 Urine Urobilinogen 4.0 mg/dL (0.2-1.0) 04/03/17 19:20 Ur Leukocyte Esterase Neg Griselda/uL (Negative) 04/03/17 19:20 Urine RBC (Auto) 3 /hpf (0-3) 04/03/17 19:20 Urine Microscopic WBC 10 /hpf (0-5) H 04/03/17 19:20 Ur Squamous Epith Cells 1 /hpf (0-5) 04/03/17 19:20 Urine Bacteria Rare (<OCC) 04/03/17 19:20 Hyaline Casts 0-2 /hpf (0-2) 04/03/17 19:20 - Hospital Course Hospital Course: 81 years old male with hx of anemia, bilateral lower extremity pains and nephrolithiasis. His last admission for renal colic was in [place] early March 2017. He passed the stone on 03/19/17. He was brought to the ED on for back pain and was dx with UTI and discharged of Macrobid. He now returns to the ED with worsening pain across the lower back, radiating posteriorly and laterally down the Thighs, on the right to the ankle and to the left to the knee. Ptaient was admitted with intractable lower back pain unable to ambulate. He denies any loss of bladder control and bowel control. He was found to be afebrile with normal WBC count MRI of the lower back showed MRI ;Apparent epidural abscess which extends from the L1-L2 through the upper L5 level with significant compressive effects on the thecal sac maximally at the L4 level where the thecal sac exhibits crescentic/ ribbonlike configuration. . In addition, there also appears to be paraspinal of phlegmonous/inflammatory component on as detailed above Discussed with Dr. Bruce over the phone and informed about MRI findings. Recommended emergency transfer to tertiary center for spine surgery Called [facility] and discussed case with Elsie HUTCHINS from neurosurgery . Patient has been accepted for transfer under service of Dr.Khan Oakley neurosurgeon Informed patient's nurse to start the transfer process by calling transfer center at [facility] [phone] ID [address] Holloway and case discussed . Started on Vancomycin 1 g IV Q12 and rocephin 2 g IV q12 Keep bed rest monitor closely transfer to [facility] 1. Epidural abscess continue IV antibitics transfer to [facility] 2.Suspected UTI IV Fluids NS at 75mls/Hr on Rocephin urine cx sent 3. Macrocytic Anemia Hgb 8.7 sent Folate/ B12 and Hb 4. Elevated D Dimer Duplex of the right LE was -ve for DVT No evidence for Pulmonary embolism 5. Thrombocytosis - follow Platelets 6. Moderate malnutrition// cachetic BMI 18 dietitian consult patient states that has always been small built Discharge Exam - Head Exam Head Exam: ATRAUMATIC, NORMOCEPHALIC Additional comments: elederly, cachetic - Eye Exam Eye Exam: PERRL, Scleral icterus - ENT Exam ENT Exam: Mucous Membranes Moist, Normal Exam - Neck Exam Neck exam: Full Rom, Normal Inspection - Respiratory Exam Respiratory Exam: Clear to PA & Lateral, NORMAL BREATHING PATTERN. absent: Rhonchi, Wheezes - Cardiovascular Exam Cardiovascular Exam: REGULAR RHYTHM, RRR, +S1, +S2. absent: JVD - GI/Abdominal Exam GI & Abdominal Exam: Normal Bowel Sounds, Soft. absent: Distended, Rebound, Tenderness - Rectal Exam Rectal Exam: Deferred - Extremities Exam Extremities exam: normal capillary refill, normal inspection, pedal pulses present - Back Exam Back exam: NORMAL INSPECTION - Neurological Exam Neurological exam: Alert, CN II-XII Intact, Oriented x3, Reflexes Normal - Psychiatric Exam Psychiatric exam: Normal Affect, Normal Mood - Skin Skin Exam: Dry, Warm Additional comments: cachetic Discharge Plan - Discharge Medications Prescriptions: cefTRIAXone [Rocephin] 2 gm IV Q12 #60 vial Vancomycin 1 GM [Vancomycin 1GM in Normal Saline Addvantage] 1 gm IVPB Q12 #60 bag - Follow Up Plan Condition: FAIR Disposition: Trans to Other Acute Care Hosp Patient education suggested?: Yes Additional Instructions: Transfer patient to [facility] under the service of Dr. Margarita Oakley neurosurgeon for diagnosis of epidural abscess with compressive effect
[2017-04-04 18:49] VITALS: BP 154/78; PULSE 100; RESP 18; TEMP 98.4
[2017-04-04] MEDS ORDERED: cefTRIAXone 2 GM in Sodium Chloride 0.9% 100 ML IVPB SCH (21:00)
[2017-04-04 22:23] LABS: FOLATE 8.9 ng/mL
== END 2017-04-04 20:43 | disposition short-term general hospital (02) ==
LOC: H.ER 18:25 → H.ERHOLD 23:38 → H.MEDSURG1 04-04 02:41
PROVIDERS: ADMIT Internal Medicine; ATTEND Internal Medicine
DX: G06.1 Intraspinal abscess and granuloma (principal); D53.9 Nutritional anemia, unspecified; R19.7 Diarrhea, unspecified; D47.3 Essential (hemorrhagic) thrombocythemia; E44.0 Moderate protein-calorie malnutrition; Z68.1 Body mass index [BMI] 19.9 or less, adult; N18.9 Chronic kidney disease, unspecified; R79.1 Abnormal coagulation profile
CPT/HCPCS: 36415; 72158; 74177; 80053; 81003; 82607; 82746; 83605; 83690; 83735; 84100; 84153; 85025; 85378; 85651; 87040; 87045; 87086; 87230; 93971; 96365; 96366; 96372; 96375; 96376; 97116; 97162; 99284; A9579; G0378; G8978; G8979; J0696; J1650; J1885; J2270; J7040; Q9966; Q9967